=== PATIENT | male | born 1995 ===

== ENCOUNTER 2018-07-27 13:30 | Emergency (ER) | payer MEDICAID ==
[~2018-07-27] VITALS: Ht 188 cm; Wt 65.9 kg
[2018-07-27 13:38] VITALS: BP 119/62
== END 2018-07-27 14:23 | disposition home or self-care (01) ==
LOC: ER 13:31
DX: Z11.3 Encounter for screening for infections with a predominantly sexual mode of transmission (principal); Z72.51 High risk heterosexual behavior; Z88.0 Allergy status to penicillin; Z88.8 Allergy status to other drugs, medicaments and biological substances
CPT/HCPCS: 99281